=== PATIENT | female | born 1935 | race Caucasian/White ===

== ENCOUNTER 2023-08-11 08:09 | Emergency (ER) | payer MEDICARE, SELFPAY ==
[2023-08-11 08:18] VITALS: BP 116/74; PULSE 88; RESP 18; TEMP 36.9; O2SAT 98; BMI 20.2
--- NOTE | 2023-08-11 08:45 | ED_ITS ---
HPI - Epistaxis 2 General: Chief complaint: Epistaxis Stated complaint: dr rice referral, nose bleed (continuous) Time Seen by Provider: 08/11/23 08:27 Source: patient Mode of arrival: ambulatory History of Present Illness: 80-year-old female presents emergency ro om with complaint of nosebleed. She has had intermittent epistaxis for the last week. She was seen previously seen her primary care doctor and was seen by ENT. They did order a CT of her head. She comes in today with cotton spot stuffed in her nostrils. Is not actively bleeding on arrival. MD complaint: epistaxis Location: left nostril Onset (ago): day(s) Duration: intermittent Context: history of previous Associated symptoms: Reports sinus pain; Deny fever(s) Treatment prior to arrival: stuffed nose with tissue Review of Systems 2 Const: Denies: fever(s) or chills ENMT: Reports: sinus pain Card: Denies: chest pain Resp: Denies: dyspnea GI: Denies: abdominal pain : Denies: dysuria, urinary frequency or urinary urgency Musc: Denies: neck pain or back pain Skin/Breast: Denies: rash Physical Exam 2 Const: GENERAL APPEARANCE: cooperative and comfortable O RIENTATION/CONSCIOUSNESS: Yes awake, Yes oriented to person, Yes oriented to place and Yes oriented to time HENMT: COMMON NORMALS: normocephalic, atraumatic and hearing grossly normal bilaterally HEAD & SCALP: normocephalic and atraumatic OTHER: There appears to be necrotic polyp in the left nare. There is no active bleeding after removal of the packs patient placed at home Resp: COMMON NORMALS: normal respiratory effort, No retractions, No use of accessory muscles and clear to auscultation bilaterally AUSCULTATION: clear to auscultation bilaterally Cardio: COMMON NORMALS: regular rate, regular rhythm and No murmurs present (Cardio) RATE: regular rate RHYTHM: regular rhythm GI: COMMON NORMALS: Soft to palpation and No hepatosplenomegaly present A USCULTATION: Yes normoactive bowel sounds PALPATION: Yes Soft to palpation, No Tenderness to palpation present (GI), No Guarding due to palpation present (GI) and Yes No hepatosplenomegaly present Extremity: COMMON NORMALS: normal to inspection, capillary refill normal, no clubbing, cyanosis or edema, no calf tenderness and no pedal edema Neuro: SENSORIUM/ORIENTATION: Yes oriented to person, Yes oriented to place and Yes oriented to time Skin: COMMON NORMALS: no rashes or lesions noted GENERAL SKIN EXAM: no rashes or lesions noted Course 2 Vital Signs: Vital signs: Vital Signs Temperature 98.4 F 08/11/23 08:18 Pulse Rate 96 08/11/23 12:26 Respiratory Rate 18 08/11/23 12:26 Blood Pressure 116/74 08/11/23 08:18 Pulse Oximetry 97 08/11/23 12:26 Oxygen Delivery Me thod Room Air 08/11/23 08:18 MDM - Epistaxis Medical Decision Making Discussed Dr. Delgadillo he recommended 2 sprays in each nostril of oxymetazoline 3-4 times a day to control prevent bleeding and follow-up with him next week. Also started on Augmentin 875 1 p.o. twice daily for 10 days. Return if has uncontrolled epistaxis Medical Records I reviewed the patient's medical records. Lab Data I reviewed the patient's lab results. 08/11/23 08:39 08/11/23 08:39 Laboratory Results WBC 7.39 10^3/uL (3.29-11.43) 08/11/23 08:39 RBC 3.74 10^6/uL (3.85-5.65) L 08/11/23 08:39 Hgb 11.80 g/dL (11.27-16.99) 08/11/23 08:39 Hct 36.8 % (36-47) 08/11/23 08:39 MCV 98.4 fl (85-98) H 08/11/23 08:39 MCH 31.6 pg (27-33) 08/11/23 08:39 MCHC 32.1 g/dL (30-55) 08/11/23 08:39 RDW 12.2 % (12.1-15.1) 08/11/23 08:39 Plt Count 240 10^3/cmm (157-399) 08/11/23 08:39 MPV 9.7 fL (7.4-10.4) 08/11/23 08:39 Neut % (Auto) 66.7 % 08/11/23 08:39 Lymph % (Auto) 18.7 % 08/11/23 08:39 [place] % (Auto) 13.3 % 08/11/23 08:39 Eos % (Auto) 0.8 % 08/11/23 08:39 Baso % (Auto) 0.4 % 08/11/23 08:39 Neut # (Auto) 4.93 10^3/uL (1.8-7.7) 08/11/23 08:39 Lymph # (Auto) 1.4 10^3/uL (0.8-4.8) 08/11/23 08:39 [place] # (Auto) 1.0 10^3/uL (0.2-0.9) H 08/11/23 08:39 Eos # (Auto) 0.1 10^3/uL (0.0-0.8) 08/11/23 08:39 Baso # (Auto) 0.0 10^3/uL (0.0-0.1) 08/11/23 08:39 Nucleated RBC % (auto) 0 % 08/11/23 08:39 Nucleated RBCs # 0.0 /100WBC 08/11/23 08:39 PT 13.70 SECONDS (12.1-14.9) 08/11/23 08:39 INR 1.02 (0.8-1.2) 08/11/23 08:39 APTT 25.3 SECONDS (23.9-36.7) 08/11/23 08:39 Sodium 140 mmol/L (136-145) 08/11/23 08:39 Potassium 4.6 mmol/L (3.5-5.1) 08/11/23 08:39 Chloride 103 mmol/L (98-107) 08/11/23 08:39 Carbon Dioxide 29 mmol/L (22-29) 08/11/23 08:39 Anion Gap 12.6 (5-19) 08/11/23 08:39 BUN 25 mg/dL (8-23) H 08/11/23 08:39 Creatinine 0.6 mg/dL (0.5-0.9) 08/11/23 08:39 GFR Calculation Not Reportable 08/11/23 08:39 Glucose 101 mg/dL (65-115) 08/11/23 08:39 Calculated Osmolality 295 mOsm/kg (285-295) 08/11/23 08:39 Calcium 9.3 mg/dL (8.5-10.5) 08/11/23 08:39 No radiology studies performed this visit Discharge Plan Discharge Patient Disposition: Home Clinical Impression: Epistaxis Condition: Stable Prescriptions: New amoxicillin-pot clavulanate 875-125 mg tablet 1 tab PO BID Qty: 20 0RF Afrin (oxymetazoline) 0.05 % mist 2 spray intranasal QID PRN (Reason: nasal congestion) 3 Days Qty: 15 0RF No Action metoprolol tartrate 100 mg tablet 50 mg PO BID meloxicam 15 mg tablet 15 mg PO DAILY amlodipine 5 mg tablet 5 mg PO DAILY baclofen 10 mg tablet 5 mg PO TID PRN (Reason: MUSCLE RELAXER) buspirone 10 mg tablet 10 mg PO BID PRN (Reason: Anxiety) mupirocin 2 % ointment See Rx Instructions .ROUTE .COMPLEX Rx Instructions: APPLY TO ANTERIOR NASAL SEPTUM TWICE DAILY. lorazepam 1 mg tablet 1 mg PO Q8H losartan 100 mg tablet 100 mg PO DAILY Discharge Orders: Discharge ED (Routine); Ordered 08/11/23 Ordered By: Houston Valle Referrals: Carmen Zamora MD [Primary Care Provider] - Discharge Diet: Usual diet Discharge Activity: Limit activity as instructed Patient Instructions: Opioid Safety, Pain Management Activity Restrictions/Additional Instructions: Thank you for choosing [facility] for your healthcare needs today. It is very important that you follow up as instructed or that you return to the Emergency Department should you have concerns or if your condition changes or worsens in any way. You are seen today for nosebleed. Time you are seen you are not having any active bleeding. I discussed case Dr. Delgadillo he recommends using oxymetazoline (Afrin) 2 sprays 4 times a day. Additionally start her on Augmentin 875 1 p.o. twice daily for 10 days. You should contact Dr. Delgadillo's office to expedite your CT and the consultation with Dr. Delgadillo. Return to the emergency room if bleeding recurs and is uncontrollable. Coding Level of Care Code ED Traffic Supervisor for Lucy Lucas
[2023-08-11 08:47] LABS: Basophils % 0.4 %; Eosinophils # 0.1 10^3/uL (0.0-0.8); Eosinophils % 0.8 %; Hematocrit 36.8 % (36-47); Lymphocytes # 1.4 10^3/uL (0.8-4.8); Lymphocytes % 18.7 %; Mean Corpuscular HGB Conc 32.1 g/dL (30-55); Mean Corpuscular Hemoglobin 31.6 pg (27-33); Mean Corpuscular Volume 98.4 fl (85-98); Mean Platelet Volume 9.7 fL (7.4-10.4); Monocytes % 13.3 %; Neutrophils # 4.93 10^3/uL (1.8-7.7); Neutrophils % 66.7 %; Nucleated Red Blood Cells % 0 %; Platelet Count 240 10^3/cmm (157-399); Red Blood Count 3.74 10^6/uL (3.85-5.65); Red Cell Distribution Width 12.2 % (12.1-15.1); White Blood Count 7.39 10^3/uL (3.29-11.43)
[2023-08-11 09:01] LABS: INR 1.02 (0.8-1.2)
[2023-08-11 09:03] LABS: Anion Gap 12.6 (5-19); Blood Urea Nitrogen 25 mg/dL (8-23); Calcium 9.3 mg/dL (8.5-10.5); Carbon Dioxide 29 mmol/L (22-29); Chloride 103 mmol/L (98-107); Creatinine Clr Calc Pharmacy 38.5212; Glucose 101 mg/dL (65-115); Osmolality Calculated 295 mOsm/kg (285-295); Potassium 4.6 mmol/L (3.5-5.1); Sodium 140 mmol/L (136-145)
[2023-08-11 09:04] LABS: Partial Thromboplastin Time 25.3 SECONDS (23.9-36.7)
[2023-08-11 12:26] VITALS: PULSE 96; RESP 18; O2SAT 97
== END 2023-08-11 13:33 | disposition home or self-care (01) ==
PROVIDERS: Emergency Provider Family Medicine; PCP Family Medicine
DX: R04.0 Epistaxis (principal); J33.9 Nasal polyp, unspecified
CPT/HCPCS: 36415; 80048; 85025; 85610; 85730; 99283

== ENCOUNTER → 2024-03-09 13:21 | Outpatient (BNVA) | payer MEDICARE, SELFPAY | PROVIDERS: PCP Family Medicine; Visit Provider Family Medicine | DX: I10 Essential (primary) hypertension (principal); I73.9 Peripheral vascular disease, unspecified; M06.9 Rheumatoid arthritis, unspecified; M54.9 Dorsalgia, unspecified; G89.29 Other chronic pain; R26.89 Other abnormalities of gait and mobility; G47.00 Insomnia, unspecified | CPT/HCPCS: 80053; 82607; 84439; 84443; 85025 ==

== ENCOUNTER 2024-03-11 06:30 | Outpatient (RCR) | payer MEDICARE, SELFPAY | END 2024-04-07 23:59 | disposition home or self-care (01) | LOC: MPT 06:30 | PROVIDERS: PCP Family Medicine; Visit Provider Family Medicine | DX: R26.81 Unsteadiness on feet (principal) | CPT/HCPCS: 97110; 97162 ==

== ENCOUNTER 2024-06-29 17:53 | Emergency (ER) | payer MEDICARE, SELFPAY ==
[2024-06-29 18:09] VITALS: BP 182/82; PULSE 80; RESP 17; TEMP 36.7; O2SAT 97; BMI 22.1
--- NOTE | 2024-06-29 18:18 | USR_ITS ---
PROCEDURE INFORMATION: Exam: US Duplex Left Lower Extremity Veins, Limited Exam date and time: 06/29/2024 6:27 PM Age: 88 years old Clinical indication: Pain; Leg, lower; Left; Additional info: Left-sided calf pain and swelling concern for dvt TECHNIQUE: Imaging protocol: Real-time duplex ultrasound of the left extremity with 2-D dalton scale, color Doppler flow and spectral waveform analysis including responses to compression and other maneuvers (when performed) with image documentation. Limited exam focused on the left lower extremity veins. COMPARISON: No relevant prior studies available. FINDINGS: Left deep veins: Unremarkable. The common femoral, femoral, proximal profunda femoral, popliteal, posterior tibial and peroneal veins are patent without thrombus. Normal compressibility, augmentation response and Doppler waveforms. Superficial veins: Greater saphenous vein at the saphenofemoral junction is patent without thrombus. Soft tissues: Unremarkable. US/[id number] IMPRESSION: No sonographic evidence of deep vein thrombosis.
[2024-06-29 19:02] LABS: Basophils % 0.4 %; Eosinophils # 0.1 10^3/uL (0.0-0.8); Eosinophils % 1.6 %; Hematocrit 42.7 % (36-47); Lymphocytes # 2.7 10^3/uL (0.8-4.8); Lymphocytes % 36.5 %; Mean Corpuscular Hemoglobin 32.2 pg (27-33); Mean Corpuscular Volume 97.5 fl (85-98); Mean Platelet Volume 9.6 fL (7.4-10.4); Neutrophils # 3.52 10^3/uL (1.8-7.7); Neutrophils % 48.2 %; Nucleated Red Blood Cells % 0 %; Platelet Count 212 10^3/cmm (157-399); Red Blood Count 4.38 10^6/uL (3.85-5.65); Red Cell Distribution Width 11.6 % (12.1-15.1); White Blood Count 7.31 10^3/uL (3.29-11.43)
[2024-06-29 19:26] LABS: Troponin(5th) Baseline 8 ng/L (0-10)
[2024-06-29 19:35] LABS: Alanine Aminotransferase 15 U/L (0-33); Albumin Level 4.6 g/dL (3.5-5.2); Alkaline Phosphatase 70 U/L (35-105); Anion Gap 15.2 (5-19); Aspartate Amino Transferase 24 U/L (0-32); Blood Urea Nitrogen 16 mg/dL (8-23); Calcium 9.6 mg/dL (8.5-10.5); Carbon Dioxide 26 mmol/L (22-29); Chloride 99 mmol/L (98-107); Creatinine Clr Calc Pharmacy 41.5293; Globulin 2.3 g/dL (1.3-4.6); Glucose 96 mg/dL (65-115); NT Pro B Type Natriuretic Pept 490 pg/mL (0-450); Osmolality Calculated 283 mOsm/kg (285-295); Potassium 4.2 mmol/L (3.5-5.1); Sodium 136 mmol/L (136-145); Total Bilirubin 0.6 mg/dL (0.15-1.2); Total Protein 6.9 g/dL (6.6-8.7)
[2024-06-29 20:12] VITALS: BP 146/78; PULSE 73; RESP 16; O2SAT 98
--- NOTE | 2024-06-29 20:50 | ECG_ITS ---
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 Measurements Intervals [place] Rate: 81 P: 88 MT: 185 QRS: 81 QRSD: 74 T: 85 QT: 357 QTc: 416 Interpretive Statements SINUS RHYTHM POSSIBLE LEFT ATRIAL ENLARGEMENT [-0.1mV P-WAVE IN V1/V2] SEPTAL MYOCARDIAL INFARCTION , OF INDETERMINATE AGE [40+ ms Q WAVE IN V1/V2] No previous ECG available for comparison Electronically Signed On 06-30-2024 16:33:15 CDT by Chichi Hobbs M.D. [email or web address]
[2024-06-29 21:32] LABS: Troponin 5 2HR 7.96 ng/L (0-10)
[2024-06-29 21:40] LABS: Troponin 5 2HR Delta -0.04 ABS# (0-10)
[2024-06-30 00:30] VITALS: BP 180/80; PULSE 90; RESP 18; O2SAT 97
[2024-06-30 01:18] LABS: Troponin 5 6HR 7.23 ng/L (0-10)
[2024-06-30 01:23] LABS: Troponin 5 6HR Delta -0.77 ng/L (0-12)
--- NOTE | 2024-06-30 02:02 | W.ED.EXTPRO ---
HPI - Extremity Problem General: Chief complaint: Extremity Problem,Nontraumatic Stated complaint: L swollen [place] Time Seen by Provider: 06/30/24 01:09 History of Present Illness: Marycruz Carter presents with a swollen ankle and foot pain, accompanied by a severe headache. The patient has a history of arterial blockages diagnosed two years ago. Ms. Carter reports that she initially saw Dr. Terrell in May for her ankle issue and was prescribed a diuretic. However, the pain worsened, prompting an ER visit where a sprained ankle was diagnosed and a blood clot was ruled out. The patient describes the pain as located on the top of her foot, with a stinging and sometimes stabbing sensation. She notes that the swelling is a new development, extending up to the knee. The patient reports difficulty walking due to the foot pain and mentions that her balance has been off for a couple of years. Currently, the patient rates her foot pain as minimal but describes her headache as severe, rating it 7-8 out of 10. She also mentions abdominal pain. Ms. Carter expresses concern about possible arterial insufficiency, describing the pain sometimes feeling like a cramp in the bones. She reports trying a boot for her foot, but it did not provide significant relief. The patient's medical history is significant for arterial blockages, with 30% blockage in one artery and 70% in another, diagnosed two years ago. She mentions that her doctor recommended a CT angiogram of the abdominal aorta, though the reason for this was not clearly stated. Recent healthcare interactions include the visit to Dr. Terrell in May and an ER visit for the ankle pain. The ER performed a venous study, which was reported as normal. The patient also mentions having high blood pressure during the current visit. Medical History - Arterial blockages: 30% in one artery, 70% in another, diagnosed two years ago - Balance issues for a couple of years - Recent emergency room visit for ankle pain, diagnosed with a sprained ankle - Hypertension (implied by high blood pressure during the current visit) Related Data Home Medications ?Medication ?Instructions ?Recorded ?Confirmed meloxicam 15 mg tablet 15 mg PO DAILY 08/11/23 06/05/24 Previous Rx's ?Medication ?Instructions ?Recorded metoprolol tartrate 100 mg tablet 50 mg (1/2 x 100 mg) PO BID #90 01/14/24 tabs lorazepam 1 mg tablet 1 mg PO Q6H 90 days #360 tabs 03/09/24 amlodipine 5 mg tablet 5 mg PO DAILY #90 tabs 03/21/24 losartan 100 mg tablet 100 mg PO DAILY #90 tabs 04/13/24 hydrochlorothiazide 12.5 mg tablet 12.5 mg PO QAM #90 tabs 06/05/24 Allergies Allergy/AdvReac Type Severity Reaction Status Date / Time No Known Allergies Allergy Unverified 06/05/24 08:48 Review of Systems General: Reports: 10 or more systems reviewed and unremarkable except in HPI and below PFSH ED PFSH: Medical History (Updated 06/30/24 @ 04:50 by Bismark Jenkins DO) 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 Hypercholesterolemia has taken statin in past, stopped--no longer wants to take Cervical spinal stenosis facet injection 1.20 Nicotine dependence, cigarettes, uncomplicated Anxiety has tried prozac, buspar, duloxetine, lexapro; 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 Mother No problems noted. 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 [employer] Physical Exam Const: COMMON NORMALS: no acute distress, patient oriented x3, healthy appearing, alert and well nourished HENMT: COMMON NORMALS: normocephalic HEAD & SCALP: normocephalic Eye: COMMON NORMALS: EOMs intact bilaterally Neck/C-Spine: COMMON NORMALS: full ROM and supple Resp: COMMON NORMALS: normal respiratory effort, No retractions and clear to auscultation bilaterally AUSCULTATION: clear to auscultation bilaterally Cardio: COMMON NORMALS: regular rate, regular rhythm, No gallops present (Cardio) and No murmurs present (Cardio) RATE: regular rate RHYTHM: regular rhythm GI: COMMON NORMALS: Soft to palpation and non-tender PALPATION: Yes Soft to palpation Extremity: GENERAL: Yes normal exam except as noted Neuro: COMMON NORMALS: patient oriented x3 SENSORIUM/ORIENTATION: Yes alert Skin: COMMON NORMALS: no rashes or lesions noted GENERAL SKIN EXAM: no rashes or lesions noted Course Vital Signs: Vital signs: Vital Signs Temperature 98.0 F 06/29/24 18:09 Pulse Rate 73 06/30/24 03:42 Respiratory Rate 16 06/30/24 03:42 Blood Pressure 146/78 06/30/24 03:42 Pulse Oximetry 98 06/30/24 03:42 Oxygen Delivery Me thod Room Air 06/30/24 03:42 MDM - Extremity (Nontraumatic) Medical Decision Making 88-year-old female presents to the emergency department for evaluation of left lower extremity swelling and pain. She called her primary care provider who recommended a CT angio of the aorta. Unclear at this time as to why she may have recommended that. The patient does have a wide pulse pressure concerning for aortic insufficiency versus dissection. Patient is have any chest pain making dissection less likely. Lower extremity ultrasound was negative for deep vein thrombosis.CBC was unremarkable, CMP also globally unremarkable. Patient had troponins negative x 2. Her BNP is slightly elevated at 490. As the patient is having significant pain and swelling we will plan for CT angio as recommended by the primary care. .CT angiogram demonstrated aortoiliac arthrosclerotic disease without evidence of aneurysm or dissection, moderate stenosis of the right renal artery, and an incidental right hepatic lobe enhancing lesion. Encouraged the patient to follow-up with her primary care physician regarding these findings. Additionally, recommended follow-up with management of left lower extremity swelling and pain as she does not have a venous thrombus or other signs or symptoms of life-threatening condition leading to the symptoms. Return precautions were discussed and the patient was discharged home in good condition. Lab Data 06/29/24 18:52 06/29/24 18:52 Radiology Impressions Venous Duplex 06/29/24 18:18 IMPRESSION: No sonographic evidence of deep vein thrombosis. Abdomen/Pelvis CTA 06/30/24 02:03 IMPRESSION: 1. Aortoiliac atherosclerotic disease without evidence of aneurysm or dissection. 2. Moderate stenosis of the right renal artery origin. 3. Marked osseous demineralization. 4. No evidence of acute abdominal or pelvic process. 5. 1.4 cm enhancing lesion in the posterior right hepatic lobe. 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 Doubtful significance. Laboratory Results WBC 7.31 10^3/uL (3.29-11.43) 06/29/24 18:52 RBC 4.38 10^6/uL (3.85-5.65) 06/29/24 18:52 Hgb 14.10 g/dL (11.27-16.99) 06/29/24 18:52 Hct 42.7 % (36-47) 06/29/24 18:52 MCV 97.5 fl (85-98) 06/29/24 18:52 MCH 32.2 pg (27-33) 06/29/24 18:52 MCHC 33.0 g/dL (30-55) 06/29/24 18:52 RDW 11.6 % (12.1-15.1) L 06/29/24 18:52 Plt Count 212 10^3/cmm (157-399) 06/29/24 18:52 MPV 9.6 fL (7.4-10.4) 06/29/24 18:52 Neut % (Auto) 48.2 % 06/29/24 18:52 Lymph % (Auto) 36.5 % 06/29/24 18:52 [place] % (Auto) 13.0 % 06/29/24 18:52 Eos % (Auto) 1.6 % 06/29/24 18:52 Baso % (Auto) 0.4 % 06/29/24 18:52 Neut # (Auto) 3.52 10^3/uL (1.8-7.7) 06/29/24 18:52 Lymph # (Auto) 2.7 10^3/uL (0.8-4.8) 06/29/24 18:52 [place] # (Auto) 1.0 10^3/uL (0.2-0.9) H 06/29/24 18:52 Eos # (Auto) 0.1 10^3/uL (0.0-0.8) 06/29/24 18:52 Baso # (Auto) 0.0 10^3/uL (0.0-0.1) 06/29/24 18:52 Nucleated RBC % (auto) 0 % 06/29/24 18:52 Nucleated RBCs # 0.0 /100WBC 06/29/24 18:52 Sodium 136 mmol/L (136-145) 06/29/24 18:52 Potassium 4.2 mmol/L (3.5-5.1) 06/29/24 18:52 Chloride 99 mmol/L (98-107) 06/29/24 18:52 Carbon Dioxide 26 mmol/L (22-29) 06/29/24 18:52 Anion Gap 15.2 (5-19) 06/29/24 18:52 BUN 16 mg/dL (8-23) 06/29/24 18:52 Creatinine 0.6 mg/dL (0.5-0.9) 06/29/24 18:52 GFR Calculation Not Reportable 06/29/24 18:52 Glucose 96 mg/dL (65-115) 06/29/24 18:52 Calculated Osmolality 283 mOsm/kg (285-295) L 06/29/24 18:52 Calcium 9.6 mg/dL (8.5-10.5) 06/29/24 18:52 Total Bilirubin 0.6 mg/dL (0.15-1.2) 06/29/24 18:52 AST 24 U/L (0-32) 06/29/24 18:52 ALT 15 U/L (0-33) 06/29/24 18:52 Alkaline Phosphatase 70 U/L (35-105) 06/29/24 18:52 Troponin T Baseline 8 ng/L (0-10) 06/29/24 18:52 Troponin T 120 Minute 7.96 ng/L (0-10) 06/29/24 21:06 Delta Troponin T -0.04 ABS# (0-10) L 06/29/24 21:06 Troponin T Hi Sens 6Hr 7.23 ng/L (0-10) 06/30/24 00:55 Troponin T Hi Sens 6Hr Delta -0.77 ng/L (0-12) L 06/30/24 00:55 NT-Pro-B Natriuret Pep 490 pg/mL (0-450) H 06/29/24 18:52 Total Protein 6.9 g/dL (6.6-8.7) 06/29/24 18:52 Albumin 4.6 g/dL (3.5-5.2) 06/29/24 18:52 Globulin 2.3 g/dL (1.3-4.6) 06/29/24 18:52 All radiology interpretation(s) finalized by discharge Discharge Plan Discharge Patient Disposition: Home Clinical Impression: Lower extremity edema, Atherosclerotic renal artery stenosis, unilateral Chronic leg pain Qualifiers: Laterality: bilateral Qualified Code(s): M79.604 - Pain in right leg Condition: Stable Prescriptions: No Action lorazepam 1 mg tablet 1 mg PO Q6H 90 Days Qty: 360 1RF hydrochlorothiazide 12.5 mg tablet 12.5 mg PO QAM Qty: 90 1RF metoprolol tartrate 100 mg tablet 50 mg PO BID Qty: 90 3RF amlodipine 5 mg tablet 5 mg PO DAILY Qty: 90 3RF losartan 100 mg tablet 100 mg PO DAILY Qty: 90 3RF meloxicam 15 mg tablet 15 mg PO DAILY Discharge Orders: Discharge ED (Routine); Ordered 06/30/24 Ordered By: Bismark Law Referrals: Carmen Zamora MD [Primary Care Provider, [facility]] Discharge Diet: Advance as tolerated Discharge Activity: Resume usual activity Patient Instructions: Opioid Safety, Pain Management Activity Restrictions/Additional Instructions: Please follow-up with your primary care physician for management of right renal artery stenosis, aortoiliac arthrosclerosis, hypertension, lower extremity swelling, and leg pain. Please return to the emergency department with any new or worsening symptoms. Print Language: Afghan Coding Level of Care Code ED Physician Practice Administrator for Lucy Lucas
--- NOTE | 2024-06-30 02:03 | CTR_ITS ---
PROCEDURE INFORMATION: Exam: CTA Abdomen and Pelvis With Contrast Exam date and time: 06/30/2024 2:33 AM Age: 88 years old Clinical indication: Other: Wide pulse and lowe extremity swelling; Prior surgery; Surgery date: 6+ months; Surgery type: Lumbar fusion, cholecystectomy, hysterectomy; Additional info: Wide pulse and lower extremity swelling. Evaluate aorta TECHNIQUE: Imaging protocol: Computed tomographic angiography of the abdomen and pelvis with contrast. Exam focused on the arteries. 3D rendering (Not supervised by radiologist): MIP and/or 3D reconstructed images were created by the technologist. Radiation optimization: All CT scans at this facility use at least one of these dose optimization techniques: automated exposure control; mA and/or kV adjustment per patient size (includes targeted exams where dose is matched to clinical indication); or iterative reconstruction. Contrast material: OMNI 350; Contrast volume: 100 ml; Contrast route: INTRAVENOUS (IV); COMPARISON: [id number] 06/29/2024 6:27 PM RADIATION DOSE METRICS: Total DLP (mGy-cm): 249.2 FINDINGS: Aorta: Extensive aortic atherosclerosis without aneurysm or dissection. Celiac trunk and mesenteric arteries: No occlusion or significant stenosis. Renal arteries: Moderate stenosis of the right renal artery origin. Right iliac arteries: No occlusion or significant stenosis. Left iliac arteries: No occlusion or significant stenosis. Liver: 1.4 cm enhancing lesion in the posterior right hepatic lobe. Multiple hepatic cysts measuring up to 2.5 cm. Gallbladder and biliary ducts: Status post cholecystectomy. No evidence of significant biliary obstruction. Pancreas: Unremarkable. No mass. No ductal dilation. Spleen: Unremarkable. No splenomegaly. Adrenal glands: Bilateral adrenal enlargement suggesting hyperplasia. Kidneys and ureters: Unremarkable. No solid mass. No hydronephrosis. Stomach and bowel: Colonic diverticulosis is present without diverticulitis. Bowel has normal caliber. Appendix: No evidence of appendicitis. Intraperitoneal space: Unremarkable. No free air. No significant fluid collection. Lymph nodes: Unremarkable. No enlarged lymph nodes. Urinary bladder: Unremarkable. No mass. Reproductive: Uterus is surgically absent. No evidence of adnexal mass. Bones/joints: Prior instrumented posterior spinal fusion and laminectomy L3-L5. Marked osseous demineralization. Chronic appearing L1 superior endplate compression fracture. Soft tissues: Unremarkable. CT/CT angio abdomen pelvis [id number] IMPRESSION: 1. Aortoiliac atherosclerotic disease without evidence of aneurysm or dissection. 2. Moderate stenosis of the right renal artery origin. 3. Marked osseous demineralization. 4. No evidence of acute abdominal or pelvic process. 5. 1.4 cm enhancing lesion in the posterior right hepatic lobe. 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 Doubtful significance.
[2024-06-30] MEDS: iohexol 350 mg/mL 500 mL Btl (per mL) IV (02:44)
[2024-06-30 03:42] VITALS: BP 146/78; PULSE 73; RESP 16; O2SAT 98
[2024-06-30 05:23] VITALS: BP 147/82; PULSE 90; RESP 18; O2SAT 96
== END 2024-06-30 05:24 | disposition home or self-care (01) ==
PROVIDERS: Emergency Medicine; Emergency Provider General Practice; PCP Family Medicine
DX: R60.0 Localized edema (principal); R51.9 Headache, unspecified; F17.210 Nicotine dependence, cigarettes, uncomplicated; I10 Essential (primary) hypertension; I70.1 Atherosclerosis of renal artery
CPT/HCPCS: 36415; 74174; 80053; 83880; 84484; 85025; 93005; 93971; 99285

== ENCOUNTER → 2024-07-05 11:10 | Outpatient (BNVA) | payer MEDICARE, SELFPAY | PROVIDERS: PCP Family Medicine; Visit Provider Family Medicine | DX: M79.89 Other specified soft tissue disorders (principal); M05.79 Rheumatoid arthritis with rheumatoid factor of multiple sites without organ or systems involvement | CPT/HCPCS: 84550 ==